=== PATIENT | female | born 1970 | race Caucasian/White ===

== ENCOUNTER 2017-04-01 10:15 | Day surgery (SDC) | payer BC ==
[~2017-04-01 10:15] MED LIST: Lactated Ringers 1,000 ML IV SCH; Sodium Chloride 0.9% 10 ML Syringe FLUSH PRN; Sodium Chloride 0.9% 2.5 ML Syringe FLUSH PRN
--- NOTE | 2017-04-01 10:57 | PCM.PREANE ---
Preanesthetic Assessment - Anesthesia/Transfusion/Family Hx Anesthesia History: Prior Anesthesia Without Reaction Family History of Anesthesia Reaction: No Transfusion History: No Prior Transfusion(s) - Review of Systems General: No Symptoms Pulmonary: No Symptoms Cardiovascular: No Symptoms Gastrointestinal: No symptoms Neurological: No Symptoms Other: Reports: None - Physical Assessment NPO Status Date: 03/31/17 O2 Sat by Pulse Oximetry: 100 Respiratory Rate: 16 Vital Signs: Last Vital Signs Temp 36.7 C 04/01/17 10:24 Pulse 55 L 04/01/17 10:24 Resp 16 04/01/17 10:24 BP 125/72 04/01/17 10:24 Pulse Ox 100 04/01/17 10:24 Height: 1.75 m Weight: 72.575 kg ASA Class: 2 Mental Status: Alert & Oriented x3 Airway Class: Mallampati = 1 Dentition: Reports: Normal Dentition Lungs: Clear to auscultation, Normal respiratory effort Cardiovascular: Regular Rate, Regular Rhythm - Allergies Allergies/Adverse Reactions: Allergies Allergy/AdvReac Type Severity Reaction Status Date / Time No Known Allergies Allergy Verified 11/27/14 12:49 - Anesthesia Plan Pre-Op Medication Ordered: None - Acknowledgements Anesthesia Type Planned: MAC Pt an Appropriate Candidate for the Planned Anesthesia: Yes Alternatives and Risks of Anesthesia Discussed w Pt/Guardian: Yes Pt/Guardian Understands and Agrees with Anesthesia Plan: Yes PreAnesthesia Questionnaire HEENT History: Reports: Other (See Below) Other HEENT History: wears glasses, middle ear effusion which causes vertigo ( takes triamterene/HCTZ for this) Respiratory History: Reports: Bronchitis, Recurrent, Other (See Below) Other Respiratory History: has inhaler for recurrent bronchitits Gastrointestinal History: Reports: None Genitourinary History: Reports: None RESOURCE COORDINATOR History: Reports: Musculoskeletal History: Reports: Fracture Other Musculoskeletal History: fx leg as a child Psychiatric History: Reports: Anxiety, Depression Endocrine/Metabolic History: Reports: Hypothyroidism Hematologic History: Reports: Other (See Below) Other Hematologic History: states had blood clot in her stomach after her hysterectomy 20 yrs ago - Past Surgical History Head Surgeries/Procedures: Reports: None HEENT Surgical History: Reports: Adenoidectomy, Tonsillectomy GI Surgical History: Reports: Appendectomy Female Surgical History: Reports: Hysterectomy Musculoskeletal Surgical History: Reports: Shoulder Surgery Other Musculoskeletal Surgeries/Procedures:: hx rotator cuff repair - SUBSTANCE USE Smoking Status *Q: Never Smoker Recreational Drug Use History: No - HOME MEDS Home Medications: Home Meds Albuterol Sulfate [Proair Hfa] 2 puff INH ASDIRECTED PRN 03/30/17 [History] Levothyroxine Sodium [Synthroid] 175 mcg PO DAILY 03/30/17 [History] Triamterene/Hydrochlorothiazid [Triamterene-HCTZ 37.5-25 MG] 1 tab PO DAILY [History] Venlafaxine HCl [Venlafaxine HCl ER] 37.5 mg PO DAILY 03/30/17 [History] - CURRENT (IN HOUSE) MEDS Current Meds: Current Medications Lactated Ringer's (Ringers, Lactated) 1,000 mls @ 125 mls/hr IV ASDIRECTED RAMON Last Admin: 04/01/17 10:28 Dose: 125 mls/hr Discontinued Medications Lactated Ringer's (Ringers, Lactated) 1,000 mls @ 125 mls/hr IV ASDIRECTED RAMON Sodium Chloride (Saline Flush) 10 ml FLUSH ASDIRECTED PRN PRN Reason: Keep Vein Open Sodium Chloride (Saline Flush) 2.5 ml FLUSH ASDIRECTED PRN PRN Reason: Keep Vein Open
[2017-04-01] MEDS ORDERED: Lidocaine 2% 5 ML SDV ONE (11:36)
[2017-04-01] MEDS ORDERED: Propofol 200 MG/20 ML SDV ONE ×3 (11:37→12:30)
[2017-04-01] MEDS ORDERED: Midazolam 1 MG/ML 2 ML SDV ONE (11:37)
[2017-04-01] MEDS ORDERED: fentaNYL 100 MCG/2 ML SDV ONE (11:37)
--- NOTE | 2017-04-01 12:52 | PCM.OPNOTE ---
- General Post-Op/Procedure Note Date of Surgery/Procedure: 04/01/17 Operative Procedure(s): Diagnostic colonoscopy Findings: Normal colon, poor prep Pre Op Diagnosis: history of colon polyps Post-Op Diagnosis: same Anesthesia Technique: MAC Primary Surgeon: Reena Meade Condition: Good
[2017-04-01 13:17] VITALS: BP 117/78
--- NOTE | 2017-04-01 14:17 | PCM.POSTAN ---
POST ANESTHESIA ASSESSMENT - MENTAL STATUS Mental Status: alert, oriented - RESPIRATORY Respiratory Status: respiratory rate WNL, airway patent, O2 saturation stable - CARDIOVASCULAR CV Status: pulse rate WNL, blood pressure stable - GASTROINTESTINAL GI Status: no symptoms - POST OP HYDRATION Hydration Status: adequate & stable
--- NOTE | 2017-04-01 14:17 | PCM48HPAN ---
Post Anesthesia Note - EVALUATION WITHIN 48HRS OF ANESTHETIC Vital Signs in Normal Range: Yes Patient Participated in Evaluation: Yes Respiratory Function Stable: Yes Airway Patent: Yes Cardiovascular Function Stable: Yes Hydration Status Stable: Yes Pain Control Satisfactory: Yes Nausea and Vomiting Control Satisfactory: Yes Mental Status Recovered: Yes
--- NOTE | 2017-04-01 16:01 | OR ---
SURGEON: LUDIVINA YOU MD DATE OF PROCEDURE: 04/01/2017 PREOPERATIVE DIAGNOSIS: History of colon polyps. POSTOPERATIVE DIAGNOSIS: Normal appearing colon. PROCEDURE PERFORMED: Diagnostic colonoscopy. INSTRUMENT USED: Olympus colonoscope. ANESTHESIA: MAC. EXTENT OF EXAM: To the cecum. PREPARATION: Poor. LIMITATIONS: None. 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 It has been five years since her last colonoscopy and she is due for a repeat. We discussed the procedure, expected perioperative course, and risks including bleeding, infection, or damage to surrounding structures, including perforation. The patient verbalized understanding and wished to proceed. PROCEDURE IN DETAIL: The patient was brought into the endoscopy suite and placed in the left lateral decubitus position. A time-out was completed verifying the patient's name, age, date of , allergies, and procedure to be performed. Monitored anesthesia care was induced and continuous oxygen was provided via face mask throughout the procedure. After adequate sedation was achieved, a digital rectal exam was performed. This exam was within normal limits. A well lubricated colonoscope was inserted into the rectum and advanced under direct visualization to the level of cecum. This was specially difficult given that the patient had a large volume of liquid stool in the colon. The scope was plugged several times due to the amount of solid stool still left within the colon. Despite these challenges, I was able to reach the cecum safely. The cecum was identified by both visual and anatomic landmarks. A photograph was taken of the cecal cap as well as the scope was retroflexed within the cecum. The scope was then fully withdrawn while examining the color, texture, anatomy, and integrity of the mucosa from the cecum to the anal canal. The findings were consistent with normal colonic mucosa. The scope was then brought into the rectum and retroflexed to allow visualization of the anal canal opening. This appeared normal and a photograph was taken. The scope was then straightened out and removed from the patient. Cecum to anus time was 8 minutes. The patient was transferred to the recovery room in stable condition. ENDOSCOPIC DIAGNOSIS: Normal colonoscopy. RECOMMENDATION: Follow up in the clinic in 2 weeks. SIRISHA SALAZAR /[id number]
== END 2017-04-01 13:20 | disposition home or self-care (01) ==
LOC: MW.SDS 10:15
PROVIDERS: ATTEND Surgery
DX: Z12.11 Encounter for screening for malignant neoplasm of colon (principal); Z86.010 Personal history of colon polyps; I10 Essential (primary) hypertension; E03.9 Hypothyroidism, unspecified; F41.9 Anxiety disorder, unspecified; Z79.899 Other long term (current) drug therapy; Z90.49 Acquired absence of other specified parts of digestive tract; Z90.710 Acquired absence of both cervix and uterus; Z98.890 Other specified postprocedural states; Z78.9 Other specified health status
CPT/HCPCS: 45378; J2250; J3010; J7120; J2704

== ENCOUNTER 2017-10-01 07:41 | Day surgery (SDC) | payer BC ==
[2017-09-30 09:51] LABS: CHLORIDE,CL 100 mmol/L (98-110); SODIUM,NA 139 mmol/L (136-146)
[~2017-10-01 07:41] MED LIST changes: +Lidocaine 2% 5 ML SDV ONE; +Midazolam 1 MG/ML 2 ML SDV ONE; +Ondansetron 4 MG/2 ML SDV ONE; +Propofol 200 MG/20 ML SDV ONE; +Sodium Chloride 0.9% 1,000 ML IV SCH; +fentaNYL 250 MCG/5 ML SDV ONE
--- NOTE | 2017-10-01 08:51 | PCM.PREANE ---
Preanesthetic Assessment - Anesthesia/Transfusion/Family Hx Anesthesia History: Prior Anesthesia Without Reaction Family History of Anesthesia Reaction: No Transfusion History: No Prior Transfusion(s) Intubation History: Unknown - Review of Systems General: No Symptoms Pulmonary: No Symptoms Cardiovascular: No Symptoms Gastrointestinal: No Symptoms Neurological: No Symptoms Other: Reports: None - Physical Assessment NPO Status Date: 09/30/17 NPO Status Time: 20:00 O2 Sat by Pulse Oximetry: 98 Respiratory Rate: 16 Vital Signs: Last Vital Signs Temp 36.5 C 10/01/17 07:45 Pulse 65 10/01/17 07:45 Resp 16 10/01/17 07:45 BP 117/88 10/01/17 07:45 Pulse Ox 98 10/01/17 07:45 Height: 1.75 m Weight: 73.936 kg ASA Class: 2 Mental Status: Alert & Oriented x3 Airway Class: Mallampati = 2 Dentition: Reports: Normal Dentition Thyro-Mental Finger Breadths: 3 Mouth Opening Finger Breadths: 3 ROM/Head Extension: Full Lungs: Clear to Auscultation, Normal Respiratory Effort Cardiovascular: Regular Rate, Regular Rhythm - Lab Values: Laboratory Last Values WBC 5.52 K/uL (4.0-11.0) 09/30/17 09:00 RBC 4.60 M/uL (4.30-5.90) 09/30/17 09:00 Hgb 14.2 g/dL (12.0-16.0) 09/30/17 09:00 Hct 42.2 % (36.0-46.0) 09/30/17 09:00 MCV 91.7 fL (80.0-98.0) 09/30/17 09:00 MCH 30.9 pg (27.0-32.0) 09/30/17 09:00 MCHC 33.6 g/dL (31.0-37.0) 09/30/17 09:00 RDW Std Deviation 44.1 fl (28.0-62.0) 09/30/17 09:00 RDW Coeff of Aiden 13 % (11.0-15.0) 09/30/17 09:00 Plt Count 228 K/uL (150-400) 09/30/17 09:00 MPV 10.80 fL (7.40-12.00) 09/30/17 09:00 Nucleated RBC % 0.0 /100WBC 09/30/17 09:00 Nucleated RBCs # 0 K/uL 09/30/17 09:00 Sodium 139 mmol/L (136-146) 09/30/17 09:00 Potassium 4.2 mmol/L (3.5-5.1) 09/30/17 09:00 Chloride 100 mmol/L (98-110) 09/30/17 09:00 Carbon Dioxide 30 mmol/L (21-31) 09/30/17 09:00 BUN 15 mg/dL (6.0-23.0) 09/30/17 09:00 Creatinine 0.8 mg/dL (0.6-1.5) 09/30/17 09:00 Est Cr Clr Drug Dosing 90.85 mL/min 09/30/17 09:00 Estimated GFR (MDRD) > 60.0 ml/min 09/30/17 09:00 Glucose 81 mg/dL (60-110) 09/30/17 09:00 Calcium 10.1 mg/dL (8.8-10.8) 09/30/17 09:00 Blood Type O POSITIVE 09/30/17 09:00 Antibody Screen NEGATIVE 09/30/17 09:00 - Allergies Allergies/Adverse Reactions: Allergies Allergy/AdvReac Type Severity Reaction Status Date / Time Penicillins Allergy Hives Verified 09/29/17 14:57 - Blood Blood Available: No - Anesthesia Plan Pre-Op Medication Ordered: None - Acknowledgements Anesthesia Type Planned: General Anesthesia Pt an Appropriate Candidate for the Planned Anesthesia: Yes Alternatives and Risks of Anesthesia Discussed w Pt/Guardian: Yes Pt/Guardian Understands and Agrees with Anesthesia Plan: Yes PreAnesthesia Questionnaire HEENT History: Reports: Allergic Rhinitis Other HEENT History: wears glasses Respiratory History: Reports: Bronchitis, Recurrent, Other (See Below) Other Respiratory History: has inhaler for recurrent bronchitits Gastrointestinal History: Reports: None Genitourinary History: Reports: Urinary Incontinence (stress incontinance) RN ACLS History: Reports: Musculoskeletal History: Reports: Fracture Other Musculoskeletal History: hx of fx leg as a child Neurological History: Reports: Vertigo Psychiatric History: Reports: Anxiety, Depression Endocrine/Metabolic History: Reports: Hypothyroidism Hematologic History: Reports: Other (See Below) Other Hematologic History: states had blood clot in her stomach after her hysterectomy 20 yrs ago - Past Surgical History HEENT Surgical History: Reports: Adenoidectomy, Tonsillectomy GI Surgical History: Reports: Appendectomy, Colonoscopy Female Surgical History: Reports: Hysterectomy Musculoskeletal Surgical History: Reports: Shoulder Surgery Other Musculoskeletal Surgeries/Procedures:: right RTCR - SUBSTANCE USE Smoking Status *Q: Never Smoker Recreational Drug Use History: No - HOME MEDS Home Medications: Home Meds Levothyroxine Sodium [Synthroid] 175 mcg PO DAILY 03/30/17 [History] Triamterene/Hydrochlorothiazid [Triamterene-HCTZ 37.5-25 MG] 1 tab PO DAILY [History] Venlafaxine HCl [Venlafaxine HCl ER] 37.5 mg PO DAILY 03/30/17 [History] - CURRENT (IN HOUSE) MEDS Current Meds: Current Medications Sodium Chloride (Normal Saline) 1,000 mls @ 125 mls/hr IV ASDIRECTED RAMON Lactated Ringer's (Ringers, Lactated) 1,000 mls @ 125 mls/hr IV ASDIRECTED RAMON Last Admin: 10/01/17 08:04 Dose: 125 mls/hr Sodium Chloride (Saline Flush) 10 ml FLUSH ASDIRECTED PRN PRN Reason: Keep Vein Open Sodium Chloride (Saline Flush) 2.5 ml FLUSH ASDIRECTED PRN PRN Reason: Keep Vein Open Discontinued Medications Fentanyl (Sublimaze) Confirm Administered Dose 250 mcg .ROUTE .STK-MED ONE Stop: 10/01/17 07:25 Lidocaine (Xylocaine-Mpf 2%) Confirm Administered Dose 5 ml .ROUTE .STK-MED ONE Stop: 10/01/17 07:25 Midazolam HCl (Versed 1 Mg/Ml) Confirm Administered Dose 2 mg .ROUTE .STK-MED ONE Stop: 10/01/17 07:25 Ondansetron HCl (Zofran) Confirm Administered Dose 4 mg .ROUTE .STK-MED ONE Stop: 10/01/17 07:25 Propofol (Diprivan 20 Ml) Confirm Administered Dose 200 mg .ROUTE .STK-MED ONE Stop: 10/01/17 07:25
[2017-10-01] MEDS ORDERED: fentaNYL 100 MCG/2 ML SDV IVPUSH PRN (09:36)
[2017-10-01] MEDS ORDERED: ePHEDrine 50 MG/ML SDV ONE (09:53)
[2017-10-01] MEDS ORDERED: Acetaminophen/oxyCODONE 325-5 MG Tab PO PRN ×2 (09:59)
[2017-10-01] MEDS ORDERED: Ketorolac 30 MG/ML SDV IVPUSH PRN (09:59)
[2017-10-01] MEDS ORDERED: Ondansetron 4 MG/2 ML SDV IVPUSH PRN (09:59)
[2017-10-01] MEDS ORDERED: Morphine 2 MG/ML Syringe IVPUSH PRN (09:59)
[2017-10-01] MEDS ORDERED: Ketorolac 30 MG/ML SDV IVPUSH ONE (09:59)
[2017-10-01] MEDS ORDERED: Promethazine 25 MG/ML SDV IM PRN (09:59)
[2017-10-01] MEDS ORDERED: Morphine 4 MG/ML Syringe IVPUSH PRN (09:59)
--- NOTE | 2017-10-01 10:04 | PCM.DCSUM1 ---
Discharge Summary - Discharge Data Discharge Date: 10/01/17 Discharge Disposition: Home, Self-Care 01 Condition: Good - Patient Summary/Data Operative Procedure(s) Performed: TVT, Cysto - Patient Instructions Diet: Usual Diet as Tolerated Activity: As Tolerated Driving: Do Not Drive Showering/Bathing: May Shower Notify Provider of: Fever, Increased Pain, Nausea and/or Vomiting - Discharge Plan Home Medications: Home Meds Levothyroxine Sodium [Synthroid] 175 mcg PO DAILY 03/30/17 [History] Triamterene/Hydrochlorothiazid [Triamterene-HCTZ 37.5-25 MG] 1 tab PO DAILY [History] Venlafaxine HCl [Venlafaxine HCl ER] 37.5 mg PO DAILY 03/30/17 [History] - General Info Date of Service: 10/01/17 Functional Status: Reports: Pain Controlled - Review of Systems General: Reports: No Symptoms HEENT: Reports: No Symptoms Pulmonary: Reports: No Symptoms Cardiovascular: Reports: No Symptoms Gastrointestinal: Reports: No Symptoms Genitourinary: Reports: No Symptoms Musculoskeletal: Reports: No Symptoms Skin: Reports: No Symptoms Neurological: Reports: No Symptoms Psychiatric: Reports: No Symptoms - Patient Data Vitals - Most Recent: Last Vital Signs Temp 36.5 C 10/01/17 07:45 Pulse 65 10/01/17 07:45 Resp 16 10/01/17 08:51 BP 117/88 10/01/17 07:45 Pulse Ox 98 10/01/17 08:51 Weight - Most Recent: 73.936 kg Lab Results - Last 24 hrs: Laboratory Results - last 24 hr 09/30/17 Range/Units 09:00 Blood Type O POSITIVE Antibody Screen NEGATIVE Med Orders - Current: Current Medications Fentanyl (Sublimaze) 50 mcg IVPUSH Q5M PRN PRN Reason: Pain (severe 7-10) Stop: 10/02/17 09:37 Sodium Chloride (Normal Saline) 1,000 mls @ 125 mls/hr IV ASDIRECTED RAMON Lactated Ringer's (Ringers, Lactated) 1,000 mls @ 125 mls/hr IV ASDIRECTED RAMON Last Admin: 10/01/17 08:04 Dose: 125 mls/hr Ketorolac Tromethamine (Toradol) 30 mg IVPUSH ONETIME ONE Stop: 10/01/17 10:00 Ketorolac Tromethamine (Toradol) 30 mg IVPUSH Q6H PRN PRN Reason: Pain (severe 7-10) Stop: 10/06/17 09:59 Morphine Sulfate (Morphine) 2 mg IVPUSH Q2H PRN PRN Reason: Pain (severe 7-10) Morphine Sulfate (Morphine) 4 mg IVPUSH Q2H PRN PRN Reason: Pain (severe 7-10) Ondansetron HCl (Zofran) 4 mg IVPUSH Q6H PRN PRN Reason: Nausea/Vomiting Oxycodone/Acetaminophen (Percocet 325-5 Mg) 1 tab PO Q4H PRN PRN Reason: Pain (moderate 4-6) Oxycodone/Acetaminophen (Percocet 325-5 Mg) 2 tab PO Q4H PRN PRN Reason: Pain (moderate 4-6) Promethazine HCl (Phenergan) 25 mg IM Q6H PRN PRN Reason: Nausea/Vomiting Sodium Chloride (Saline Flush) 10 ml FLUSH ASDIRECTED PRN PRN Reason: Keep Vein Open Sodium Chloride (Saline Flush) 2.5 ml FLUSH ASDIRECTED PRN PRN Reason: Keep Vein Open Discontinued Medications Ephedrine Sulfate (Ephedrine Sulfate) Confirm Administered Dose 50 mg .ROUTE .STK-MED ONE Stop: 10/01/17 09:54 Fentanyl (Sublimaze) Confirm Administered Dose 250 mcg .ROUTE .STK-MED ONE Stop: 10/01/17 07:25 Lidocaine (Xylocaine-Mpf 2%) Confirm Administered Dose 5 ml .ROUTE .STK-MED ONE Stop: 10/01/17 07:25 Midazolam HCl (Versed 1 Mg/Ml) Confirm Administered Dose 2 mg .ROUTE .STK-MED ONE Stop: 10/01/17 07:25 Ondansetron HCl (Zofran) Confirm Administered Dose 4 mg .ROUTE .STK-MED ONE Stop: 10/01/17 07:25 Propofol (Diprivan 20 Ml) Confirm Administered Dose 200 mg .ROUTE .STK-MED ONE Stop: 10/01/17 07:25 - Exam General: Reports: Alert, Oriented HEENT: Reports: Pupils Equal, Pupils Reactive, EOMI, Mucous Membr. Moist/[place] Neck: Reports: Supple Lungs: Reports: Clear to Auscultation, Normal Respiratory Effort Cardiovascular: Reports: Regular Rate, Regular Rhythm GI/Abdominal Exam: Normal Bowel Sounds, Soft, Non-Tender, No Organomegaly, No Distention, No Abnormal Bruit, No Mass, Pelvis Stable (Female) Exam: Normal External Exam, Normal Speculum Exam, Normal Bimanual Exam Rectal (Female) Exam: Normal Exam, Normal Rectal Tone Back Exam: Reports: Normal Inspection, Full Range of Motion Extremities: Normal Inspection, Normal Range of Motion, Non-Tender, No Pedal Edema, Normal Capillary Refill Skin: Reports: Warm, Dry, Intact Wound/Incisions: Reports: Healing Well Neurological: Reports: No New Focal Deficit Psy/Mental Status: Reports: Alert, Normal Affect, Normal Mood *Q Meaningful Use (DIS) - VTE *Q VTE Criteria *Q: - Stroke *Q Stroke Criteria *Q: - AMI *Q AMI Criteria *Q:
--- NOTE | 2017-10-01 10:04 | PCM.OPNOTE ---
- General Post-Op/Procedure Note Date of Surgery/Procedure: 10/01/17 Operative Procedure(s): TVT, Cysto Pre Op Diagnosis: GINGER Post-Op Diagnosis: Same Anesthesia Technique: General ET Tube Primary Surgeon: Zaki Schuster Fire Prevention Engineer: Palak Paez EBL in mLs: 50 Complications: None Condition: Good
--- NOTE | 2017-10-01 11:15 | OR ---
SURGEON: Zaki Schuster MD DATE OF PROCEDURE: 10/01/2017 PREOPERATIVE DIAGNOSIS: Stress urinary incontinence. POSTOPERATIVE DIAGNOSIS: Stress urinary incontinence. OPERATION PERFORMED: Solex TVT and cystoscopy. FINISHER DENTURE: SILVIA Hamlin. ANESTHESIA: LMA, Adrian Fadi and Dr. Friedman. ESTIMATED BLOOD LOSS: Less than 50 mL. COMPLICATIONS: None. FINDINGS: Stress urinary incontinence. INDICATIONS FOR SURGERY: White refer to the admit note. PROCEDURE IN DETAIL: The patient was brought to the OR, properly identified. After adequate level of anesthesia, the patient was placed in lithotomy position, prepped and draped in sterile fashion as usual. Straight catheter was used to empty the bladder and then 1 inch beneath the urethra was infiltrated with copious amount of normal saline and then was opened in the midline and dissected laterally in a tunneling fashion making a room for the Solyx TVT until I can feel the dissection carried away, until I can feel the pubic rami on both sides. Then the Solyx TVT is placed in place and curved behind the pubic rami on both sides with a due amount of tension to elevate the urethrovesical angle. Once these are done, then the vaginal mucosa was closed at the midline with 2-0 Vicryl continuous interlocking for hemostasis. Once I finished with that, cystoscopy was performed. The bladder was intact. Both ureteric orifices were seen with the dye coming from them. Thus, patency of both ureters and the bladder was verified. Satisfied with these findings, the procedure ended. Instrument and sponge count was correct. The patient tolerated the procedure well, went to recovery room in stable general condition. STEPHANIE / MARIE /[id number]
[2017-10-01 11:44] VITALS: BP 101/56
== END 2017-10-01 11:52 | disposition home or self-care (01) ==
LOC: MW.SDS 07:41
PROVIDERS: ATTEND Obstetrics & Gynecology
DX: N39.3 Stress incontinence (female) (male) (principal); J30.9 Allergic rhinitis, unspecified; J41.0 Simple chronic bronchitis; E03.9 Hypothyroidism, unspecified; F41.9 Anxiety disorder, unspecified; F32.9 Major depressive disorder, single episode, unspecified; Z88.5 Allergy status to narcotic agent; Z98.890 Other specified postprocedural states; Z83.3 Family history of diabetes mellitus; Z82.49 Family history of ischemic heart disease and other diseases of the circulatory system; Z79.899 Other long term (current) drug therapy
CPT/HCPCS: 36415; 57288; 80048; 85027; 86850; 86900; 86901; J2250; J2405; J3010; J7120; 00944; C1781; J2704